=== PATIENT | male | born 1965 | race Caucasian/White ===

== ENCOUNTER 2018-12-12 17:15 | Emergency (ER) | payer MEDICAID, OTHER ==
[2018-12-12] MEDS ORDERED: IOVERSOL 320 100 ML VIAL IVP ONE ×2 (17:57→18:16)
--- NOTE | 2018-12-12 17:59 | ED Physician Documentation ---
History of Present Illness - Stated complaint Stated Complaint: GROIN PX/POST SURGERY - Chief complaint Chief Complaint: Abd Pain - History obtained from History obtained from: Patient - History of Present Illness Timing: How many weeks ago (1) Pain level max: 8 Pain level now: 7 Improved by: States nothing helps. Worsened by: Movement - Additonal information Additional information: 53-year-old male presents to the emergency department with left lower quadrant abdominal/left pelvic pain. States is been ongoing for the past week. States he is concerned that he "blew his hernia mesh". He states started when he was lifting heavy wire. 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 He states that they wanted to do surgery several years ago but he did not want surgery. He is normally on [place] for pain but ran out of this. He states that he is visiting from [place]. Review of Systems Ten Systems: 10 systems reviewed and negative Constitutional: denies: Fever, Chills Cardiac: denies: Chest pain / pressure Respiratory: denies: Cough, Wheezing GI: denies: Nausea, Vomiting, Constipation, Diarrhea : denies: Dysuria, Frequency, Hesitancy Skin: denies: Rash PD PAST MEDICAL HISTORY - Past Medical History Past Medical History: No - Past Surgical History Past Surgical History: Yes General: Other (hernia repair, L groin) - Present Medications Home Medications: Ambulatory Orders Medication Instructions Recorded Confirmed Hydrocodone/Acetaminophen 1 - 2 each PO Q6H PRN #14 tablet 12/12/18 [Hydrocodon-Acetaminophen 5-325] - Allergies Allergies/Adverse Reactions: Allergies Allergy/AdvReac Type Severity Reaction Status Date / Time codeine Allergy Anaphylaxis Verified 12/12/18 17:23 - Living Situation Living Arrangement: reports: At home - Family History Family history: reports: Non contributory PD ED PE NORMAL - Vitals Vital signs reviewed: Yes - General General: Alert and oriented X 3, No acute distress, Well developed/nourished - HEENT HEENT: PERRL, Moist mucous membranes - Neck Neck: Supple, no meningeal sign - Cardiac Cardiac: RRR, Strong equal pulses - Respiratory Respiratory: No respiratory distress, Clear bilaterally - Abdomen Abdomen: Soft, Non distended, Other (Tender to palpation left lower quadrant without peritoneal signs. ) - Male Male : Other (Normal testicular exam.) - Back Back: No CVA TTP, No spinal TTP - Derm Derm: Warm and dry - Extremities Extremities: No edema - Neuro Neuro: Alert and oriented X 3 - Psych Psych: Normal mood, Normal affect Results - Vitals Vitals: Vital Signs - 24 hr 12/12/18 12/12/18 12/12/18 17:23 19:21 19:38 Temperature 36.5 C 36.3 C L Heart Rate 97 83 84 Respiratory 18 16 18 Rate Blood Pressure 148/77 H 137/85 H 138/81 H O2 Saturation 97 97 99 Oxygen O2 Source Room air - Labs Labs: Laboratory Tests 12/12/18 12/12/18 12/12/18 17:55 17:55 18:40 WBC 7.6 RBC 4.91 Hgb 14.3 Hct 42.2 MCV 85.9 MCH 29.1 MCHC 33.9 RDW 12.9 Plt Count 252 MPV 9.2 Neut # (Auto) 3.8 Lymph # (Auto) 2.7 [place] # (Auto) 0.6 Eos # (Auto) 0.3 Baso # (Auto) 0.1 Absolute Nucleated RBC 0.00 Nucleated RBC % 0.0 Sodium 141 Potassium 4.0 Chloride 104 Carbon Dioxide 25 Anion Gap 12.0 BUN 20 Creatinine 1.1 Estimated GFR (MDRD) 70 L Glucose 97 Calcium 9.6 Total Bilirubin 0.5 AST 19 ALT 15 Alkaline Phosphatase 77 Total Protein 7.2 Albumin 4.1 Globulin 3.1 Albumin/Globulin Ratio 1.3 Lipase 34 Urine Color LT. YELLOW Urine Clarity SL. CLOUDY Urine pH 7.0 Ur Specific [place] 1.010 Urine Protein NEGATIVE Urine Glucose (UA) NEGATIVE Urine Ketones NEGATIVE Urine Occult Blood NEGATIVE Urine Nitrite NEGATIVE Urine Bilirubin NEGATIVE Urine Urobilinogen 0.2 (NORMAL) Ur Leukocyte Esterase NEGATIVE Urine RBC None Seen Urine WBC 0-3 Ur Squamous Epith Cells NONE SEEN Amorphous Sediment Moderate Urine Bacteria None Seen Ur Microscopic Review INDICATED Urine Culture Comments NOT INDICATED - Rads (name of study) CT abd/pelvis Radiology: Prelim report reviewed, EMP read contemporaneously, See rad report (Mild distal colonic wall thickening, suspicious for enteritis, infectious versus noninfectious. 2. Mild diverticulosis, but no definite localized diverticulitis at this time. 3. Rounded density in the proximal sigmoid colon, bowel contents versus polyp. Follow-up is recommended. 4. Other chronic or incidental findings. ) PD MEDICAL DECISION MAKING - ED course Complexity details: reviewed results, re-evaluated patient, considered differential, d/w patient ED course: 53-year-old male with left-sided abdominal/pelvic pain of unclear etiology. No acute abnormalities on CT scan to explain his symptoms. No diarrhea. No vomiting. Informed of the rounded density in the CT scan in the sigmoid colon and the need for a colonoscopy. Patient is out of all his hydrocodone and will give him a few days worth to get to his doctor. Patient is well-appearing, nontoxic. Afebrile. PDMP was checked and he does fill from one provider for the hydrocodone. Patient counseled regarding signs and symptoms for which I believe and urgent re-evaluation would be necessary. Patient with good understanding of and agreement to plan and is comfortable going home at this time This document was made in part using voice recognition software. While efforts are made to proofread this document, sound alike and grammatical errors may occur. Departure - Departure Disposition: 01 Home, Self Care Clinical Impression: Left groin pain Condition: Good Instructions: ED Strain Muscle Ext Follow-Up: your,doctor in 1 week [Other] Prescriptions: Hydrocodone/Acetaminophen [Hydrocodon-Acetaminophen 5-325] 1 - 2 each PO Q6H PRN #14 tablet PRN Reason: pain Comments: You can use the medication as needed for pain. Return if you worsen. Follow-up with your doctor for further care. You should have a colonoscopy when you return home. Mild distal colonic wall thickening, suspicious for enteritis, infectious versus noninfectious. 2. Mild diverticulosis, but no definite localized diverticulitis at this time. 3. Rounded density in the proximal sigmoid colon, bowel contents versus polyp. Follow-up is recommended. 4. Other chronic or incidental findings. Do not drink alcohol or drive while on narcotic pain medicine. Note that many narcotic pain relievers also contain tylenol/acetaminophen. Please ensure that your total dose of acetaminophen from all sources does not exceed 3 grams (3000mg) per day. You may constipated on this medication, take a stool softener such as "Colace" twice a day while you are on it. Also recommend a dmzc-iyv-mnhlame laxative such as senna or MiraLAX any day that you do not have a bowel movement. If you received narcotic pain medication in the emergency department, do not drive or operate machinery for the next 24 hours. Forms: Activity restrictions Discharge Date/Time: 12/12/18 19:39
[2018-12-12 18:02] LABS: BASOPHILS # (AUTO) 0.1 10^3/uL (0.0-0.1); BASOPHILS % (AUTO) 0.9 %; EOSINOPHILS # (AUTO) 0.3 10^3/uL (0.0-0.7); EOSINOPHILS % (AUTO) 4.5 %; HGB - HEMOGLOBIN 14.3 g/dL (14.0-18.0); LYMPHOCYTES # (AUTO) 2.7 10^3/uL (1.5-3.5); MEAN CORPUSCULAR HEMOGLOBIN 29.1 pg (27.0-31.0); MEAN CORPUSCULAR HGB CONC 33.9 g/dL (32.0-36.0); MEAN CORPUSCULAR VOLUME 85.9 fL (80.0-94.0); MEAN PLATELET VOLUME 9.2 fL (7.4-11.4); MONOCYTES # (AUTO) 0.6 10^3/uL (0.0-1.0); MONOCYTES % (AUTO) 8.4 %; NEUTROPHILS # (AUTO) 3.8 10^3/uL (1.5-6.6); NEUTROPHILS % (AUTO) 50.4 %; PLT - PLATELET COUNT 252 10^3/uL (130-450); RED BLOOD COUNT 4.91 10^6/uL (4.70-6.10); RED CELL DISTRIBUTION WIDTH 12.9 % (12.0-15.0); WHITE BLOOD COUNT 7.6 x10^3/uL (4.8-10.8)
[2018-12-12] MEDS ORDERED: HYDROcod/ACETAM 5/325 MG TABLET PO STA (18:14)
[2018-12-12 18:16] LABS: ALBUMIN 4.1 g/dL (3.2-5.5); ALBUMIN/GLOBULIN RATIO 1.3 (1.0-2.2); BILIRUBIN,TOTAL 0.5 mg/dL (0.2-1.0); CALCIUM 9.6 mg/dL (8.5-10.3); CREATININE 1.1 mg/dL (0.6-1.2); TOTAL PROTEIN 7.2 g/dL (6.7-8.2)
[2018-12-12 18:46] LABS: BILIRUBIN,URINE NEGATIVE (NEGATIVE); GLUCOSE, URINE (UA) NEGATIVE (NEGATIVE); KETONES,URINE (UA) NEGATIVE (NEGATIVE); LEUKOCYTE ESTERASE, URINE NEGATIVE (NEGATIVE); NITRITE,URINE NEGATIVE (NEGATIVE); OCCULT BLOOD,URINE NEGATIVE (NEGATIVE); PROTEIN,URINE NEGATIVE (NEGATIVE); UROBILINOGEN,URINE 0.2 (NORMAL) E.U./dL (NORMAL)
[2018-12-12 18:53] LABS: AMORPHOUS SEDIMENT,UR Moderate /LPF; BACTERIA,URINE None Seen /HPF (None Seen); CLARITY,URINE SL. CLOUDY (CLEAR); RBC,URINE None Seen /HPF (0-5); SQUAMOUS EPITHELIAL CELL,UR NONE SEEN (<= Few)
--- NOTE | 2018-12-12 18:59 | CT Report ---
Reason: LLQ abd pain, states tumor in his pelvis? Procedure Date: 12/12/2018 Accession Number: [id number] / [id number] Procedure: CT - Abdomen/Pelvis W CPT Code: FULL RESULT: EXAM: CT ABDOMEN AND PELVIS EXAM DATE: 12/12/2018 06:15 PM. CLINICAL HISTORY: LLQ abd pain, states tumor in his pelvis?. COMPARISONS: ABD/PEL 08/20/2009 11:52 AM. TECHNIQUE: Routine helical CT imaging was performed through the abdomen and pelvis. IV contrast: OPTI 320 100ML. Enteric contrast: No. Reconstructions: Coronal and sagittal. In accordance with CT protocol optimization, one or more of the following dose reduction techniques were utilized for this exam: automated exposure control, adjustment of mA and/or KV based on patient size, or use of iterative reconstructive technique. FINDINGS: Lung Bases: No change of small left lung base nodule. Mild scarring or atelectasis in posterior sulci. Otherwise unremarkable. Liver: Normal. No masses. Gallbladder/Bile Ducts: Unremarkable. Spleen: Normal. Pancreas: Normal. Adrenal Glands: Normal. Kidneys: Multiple cysts. Otherwise unremarkable. No stone or hydronephrosis. Peritoneal Cavity/Bowel: Mild colonic diverticulosis. Slightly high density rounded structure in this proximal sigmoid colon measuring about 19 mm in diameter, bowel contents versus polyp. Postoperative changes. Mild diffuse wall thickening in the descending colon measuring about 6-7 mm. Subtle hazy infiltration of adjacent fat suggestive of inflammatory disease. No free fluid, free air or adenopathy. Unremarkable region of the appendix. Pelvic Organs: Unremarkable urinary bladder. Mildly prominent heterogeneous prostate. Vasculature: No aneurysms or other significant abnormality. Bones: No significant abnormality. Other: Postoperative changes of anterior abdominal wall. IMPRESSION: 1. Mild distal colonic wall thickening, suspicious for enteritis, infectious versus noninfectious. 2. Mild diverticulosis, but no definite localized diverticulitis at this time. 3. Rounded density in the proximal sigmoid colon, bowel contents versus polyp. Follow-up is recommended. 4. Other chronic or incidental findings. [facility]
[2018-12-12 19:39] VITALS: BP 138/81
== END 2018-12-12 19:39 | disposition home or self-care (01) ==
LOC: ED 17:15
DX: R10.32 Left lower quadrant pain (principal); R10.2 Pelvic and perineal pain; R93.3 Abnormal findings on diagnostic imaging of other parts of digestive tract
CPT/HCPCS: 36415; 74177; 80053; 81001; 83690; 85025; 99283; A9270; Q9967; 81003; 87086